=== PATIENT | female | born 1985 | race Two or more races ===

== ENCOUNTER 2024-11-25 10:58 | Emergency (ER) | payer MEDICAID, SELFPAY ==
[2024-11-25 11:36] VITALS: BP 118/87; PULSE 97; RESP 18; TEMP 37.3; O2SAT 100; BMI 27.9
--- NOTE | 2024-11-25 12:01 | XR_ITS ---
Examination: Abdomen sonogram, Limited Date and time of exam: November 25, 2024 1219 hrs. Indications: Right upper abdominal pain beginning one week ago Technique: Real-time mendez scale transabdominal sonographic images of the upper abdomen obtained. Findings: Multiple gallstones Gallbladder wall 0.2 cm Common bile duct 0.3 cm Pancreatic head 2.3 cm Liver 14 cm fatty liver no focal liver lesions Normal hepatopedal portal venous flow Patent IVC Impression: Cholelithiasis, negative for cholecystitis
--- NOTE | 2024-11-25 12:01 | XR_ITS ---
Examination: CT brain head without contrast. 2-D sagittal coronal reconstructions Date and time of exam:November 25, 2024 1205 hrs. Indications: Head pain beginning 2 days ago CTDI: vol (mGy):44.5 DLP: (mGycm):892 Technique: Multiple CT axial sections of the brain have been obtained, 5 mm slice thickness. Contrast has not been administered. 2-D sagittal, coronal reconstructions have been obtained Low dose protocols were performed. One or more of the following dose reduction techniques were used; automated exposure control, adjustment of the mA and/or KV according to patient size, use of iterative reconstruction technique. Findings: No significant ventricular enlargement. Intra-axial or extra-axial hemorrhage density is not seen. No mass effect or midline shift Basal cisterns are not remarkable. Fourth ventricle is midline. Cranial vault intact. Impression: Negative for acute hemorrhage, mass effect or midline shift
--- NOTE | 2024-11-25 12:02 | PD.EDRME ---
Rapid Medical Screening Exam RME Arrival date/time: 11/25/24 10:58 39-year-old female presents the emergency department complains of right flank pain and headache Chief Complaint: General Adult/Misc Complain Time Seen by Provider: 11/25/24 11:01 Vital signs: Vital Signs Temperature 99.1 F 11/25/24 11:36 Pulse Rate 97 11/25/24 11:36 Respiratory Rate 18 11/25/24 11:36 Blood Pressure 118/87 H 11/25/24 11:36 Pulse Oximetry (%) 100 11/25/24 11:36 Oxygen Delivery Method Room Air 11/25/24 11:36
[2024-11-25 12:28] LABS: Collection Type, Urine Clean Catch
[2024-11-25 12:33] LABS: Bacteria,Urine 3+; Bilirubin,Urine Negative (Negative); Blood,Urine Negative (Negative); Clarity,Urine Clear (Clear/Hazy); Color,Urine Lt-Yellow (Lt Yel-Yel); Glucose, Urine Negative (Negative); Ketones,Urine Negative (Negative); Leukocyte Esterase,Urine Negative (Negative); Nitrite,Urine Negative (Negative); Protein,Urine Negative (Neg - Trace); RBC,Urine 3 /hpf (0-3); Specific Gravity,Urine 1.013 (1.001-1.035); Squamous Epithelial Cell,Urine 3 /hpf (0-5); Urobilinogen,Urine Negative mg/dL (0.0-1.0); WBC,Urine 1 /hpf (0-5)
[2024-11-25 12:41] LABS: HCG Qualitative,Urine Negative
[2024-11-25 12:44] LABS: Culture Indicated,Urine Yes
--- NOTE | 2024-11-25 12:45 | EDNOTE_ITS ---
<Statement entered by Lee Ann Armenta MD - 11/25/24 16:22> As co-signing physician, I was present and available for consult prn. I concur with the plan and care as documented by the midlevel provider. ED General RME/HPI General Chief complaint: General Adult/Misc Complain Stated complaint: BODY PAIN WITH NAUSEA, FLU LIKE SYMPTOMS Time Seen by Provider: 11/25/24 11:01 Arrival date/time: 11/25/24 10:58 CC: Left-sided head and neck pain with pain extending down the right side of her body burning sensation, mild nausea without vomiting mild constipation onset 3 days ago been taking Motrin last dose taken was yesterday evening. Patient states some relief from the Motrin. Upon initial assessment the patient declined again dressing, patient declined Motrin be being offered. Patient is awake alert oriented borderline tachycardic but not in any acute distress. RME / HPI RME / HPI narrative: 11/25/24 10:58 39-year-old female presents the emergency department complains of right flank pain and headache Related Data Previous Rx's ?Medication ?Instructions ?Recorded hydrocodone 5 mg-acetaminophen 325 1 tab PO Q6H PRN pain #14 tabs 12/12/19 mg tablet ([place]) metoclopramide HCl 10 mg tablet 10 mg PO Q6H PRN nausea and 12/12/19 (Reglan) vomiting #30 tabs meloxicam 7.5 mg tablet 7.5 mg PO QDAY #10 tabs 11/25/24 Allergies Allergy/AdvReac Type Severity Reaction Status Date / Time No Known Allergies Allergy Verified 12/12/19 03:31 Review of Systems Review of Systems Narrative Review of Systems: GEN: No fever, no chills, no weight loss EYES: No discharge, no visual changes, no pain HEENT: No ear pain, no congestion, no sore throat PULM: No shortness of breath, no cough, no congestion CV: No chest pain, no dyspnea on exertion, no palpitations GI: No nausea, no vomiting, no diarrhea, no pain, no constipation : No frequency, no urgency, no dysuria MUSC/SKEL: No joint pain, no back pain SKIN: No rash PSYCH: No hallucinations, no depression HEME/LYMPH: No easy bleeding or bruising tendencies NEURO: No weakness, no headache Past Medical History Past Medical History NEUROLOGIC: Negative Neurological Disorders or Seizures CARDIAC: Negative Cardiac Disorders or Congestive Heart Failure RESPIRATORY: Positive Tuberculosis (6 month of tx in 2012); Negative Chronic Obstructive Pulmonary Disease (COPD) GASTROINTESTINAL: Positive Gastrointestinal Disorders and Gall Bladder Disease GENITOURINARY: Negative Genitourinary Disorders or Renal Disease REPRODUCTIVE: Negative Pelvic Inflammatory Disease MUSCULOSKELETAL: Positive Musculoskeletal Disorders; Negative Carpal Tunnel Syndrome ENT: Negative Cataracts ENDOCRINE: Negative Endocrine Disorders, Diabetes Mellitus Type 1 or Diabetes Mellitus Type 2 HEMATOLOGIC: Negative Blood Disorders OTHER HISTORY: Negative Autoimmune Disease, Blood Transfusions, Blood Transfusion Reaction, Anesthesia Reactions or Organ Transplant Family History FAMILY HISTORY: Negative Family Psychiatric Problems, Family Respiratory Disorders, Family Cardiac Disorders, Family Gastrointestinal Problems, Family Cancer, Family Surgery or Family Anesthesia Reaction Surgical History SURGICAL: Positive Section (1); Negative Cardiac Surgery, Open Heart Surgery, Coronary Artery Bypass Graft, Valve Replacement, Vascular Surgery, Coronary Stent, Cardiac Catheterization, Pacemaker, Angiogram, Auto Implanted Cardiovert Defib, Carotid Endarterectomy, Endocrine Surgery, Thyroidectomy, Ear Surgery, Tympanostomy Tube, Eye Surgery, Nose Surgery, Oral Surgery, Tonsillectomy, Adenoidectomy, Cochlear Implant, Corneal Transplant, Throat Surgery, Abdominal Surgery, Tracheostomy, Gastric Bypass Surgery, Gastrostomy, Bowel Surgery, Nephrectomy, Transurethral Resection, Joint Replacement, Amputation, Open Reduction Internal Fixation, Arthroscopy, Neurologic Surgery, Brain Shunt, Mastectomy, Lumpectomy, Hysterectomy, Tubal Ligation, Vasectomy or Organ Transplant Social History SMOKING STATUS: Never smoker ED Exam Narrative Physical exam: [General: Appears not in any acute distress physical exam limited today due to refusal to get undressed. Head normocephalic HEENT: Eyes pupils are PERRLA EOMs intact. Face is covered unable to assess all other HEENT subsystems. Neck is supple with observed range of motion. Chest equal chest rise nontender to palpation Respiratory: Clear to auscultation no wheezes crackles or rubs CV: Rate rhythm is regular, borderline tachycardic, no murmurs rubs or clicks Abdomen is limited due to patient being fully dressed no pain with palpation Back: No CVA tenderness no spinous process tenderness from cervical spine thoracic and lumbar spine Skin: Upper portion of the face is the only part of the body visible other than hands no crepitus induration ulceration or lesions. Extremities: Moving all extremity against resistance cap refill less than 2 seconds neurosensory intact Neuro: Awake alert oriented x3 Glascow coma 15 no focal deficits] Course Quality Measures VTE prophylaxis Orders Category Date Time Status Bedside Influenza A&B Antigen Test NOW Care 11/25/24 11:01 Completed Bedside Influenza A&B Antigen Test NOW Care 11/25/24 12:[address] head/brain wo con Stat Exams 11/25/24 12:01 Completed US gall bladder Stat Exams 11/25/24 12:01 Completed CBC Stat Lab 11/25/24 12:58 Completed Comprehensive Metabolic Panel Stat Lab 11/25/24 12:58 Completed HCG Qualitative,Urine Stat Lab 11/25/24 12:19 Completed Lipase Stat Lab 11/25/24 12:58 Completed UA, C/S IF [Urinalysis, C/S if Indicated] Stat Lab 11/25/24 12:19 Completed Urine Culture Stat Lab 11/25/24 12:19 Received Acetaminophen Tab [Tylenol ES Tab] Med 11/25/24 12:01 Discontinued 1,000 mg PO X1 ONE Ondansetron Odt [Zofran Odt] Med 11/25/24 12:01 Discontinued 4 mg PO X1 ONE Vital Signs Vital signs: Vital Signs Temperature 99.1 F 11/25/24 11:36 Pulse Rate 97 11/25/24 11:36 Respiratory Rate 18 11/25/24 11:36 Blood Pressure 118/87 H 11/25/24 11:36 Pulse Oximetry (%) 100 11/25/24 11:36 Oxygen Delivery Method Room Air 11/25/24 11:36 [facility] Patient data External records reviewed:: [facility] previous records Clinical information provided by:: patient Social determinants that could affect healthcare access:: none Patient has the following chronic illnesses:: None How is presenting disease/condition affected by chronic disease/condition?: u neffected by Evaluation data The following diagnostics were reviewed and interpreted by me:: lab results and radiology exam(s) Lab and/or radiology exams considered but not ordered:: CBC shows no acute leukocytosis anemia thrombocytopenia CMP shows no acute electrolyte imbalances renal impairment transaminitis or T. bili elevation Gallbladder ultrasound shows cholelithiasis without cholecystitis. Urine is negative for UTI Interpretation Summary: There is no acute finding requires emergent or immediate intervention I suspect the patient has muscular pain. The patient was informed that they had cholelithiasis. Medications Medications considered but not ordered:: None Medication administrations:: Medication Administration History Discontinued Medications Acetaminophen (Acetaminophen 500 Mg Tablet) 1,000 mg PO X1 ONE Stop: 11/25/24 12:02 Last Admin: 11/25/24 13:57 Dose: 1,000 mg Documented By: ABIGAIL Ondansetron HCl (Ondansetron Odt 4 Mg Tabrap) 4 mg PO X1 ONE; Protocol Stop: 11/25/24 12:02 Last Admin: 11/25/24 13:57 Dose: Not Given Documented By: ABIGAIL Non-Admin Reason: Patient Refused None Consultations Consultation(s) initiated? (list below): No Consultation #1 (Physician, Specialty, Details): None Diagnosis Differential Diagnosis ED Complaint MDM: Cholelithiasis cholecystitis electrolyte imbalances renal impairment Most likely diagnosis given after review of the tests above:: Body aches, cholelithiasis Admission Indicated Admission indicated?: not indicated Explain why admission is indicated or not indicated:: Stable for outpatient follow-up Admission Request Was there a request for admission?: No Disposition Plan Disposition Plan: Discharge Discharge Attestation Discharge Attestation: The patient and all family members were given an opportunity to ask questions and understood the discharge instructions. Discharge instructions specifically effects, indications for sooner follow up or return to the emergency department, and the expected course of current diagnosis. Patient condition: Stable Medical Decision Making Differential Diagnosis Differential Diagnosis: Cholelithiasis cholecystitis electrolyte imbalances renal impairment Lab Data 11/25/24 12:58 11/25/24 12:58 Labs: Lab Results 11/25/24 11/25/24 Range/Units 12:19 12:58 WBC 3.2 L (3.6-11.0) Thou/mm3 RBC 4.69 (4.00-5.20) Miln/mm3 Hgb 13.9 (12.0-16.0) g/dL Hct 40.0 (36.0-46.0) % MCV 85 (80-100) fL MCH 29.6 (25.0-35.0) pg MCHC 34.8 (31.0-37.0) g/dl RDW Std Deviation 39.0 (36.4-46.3) fL Plt Count 225 (140-440) Thou/mm3 Neut % (Auto) 48 (37-80) % Lymph % (Auto) 34 (10-50) % [place] % (Auto) 16 H (0-12) % Eos % (Auto) 1 (0-10) % Baso % (Auto) 0 (0-2.5) % Neut # (Auto) 1.6 L (1.8-7.7) Thou/mm3 Lymph # (Auto) 1.1 (1.0-4.8) Thou/mm3 [place] # (Auto) 0.5 (0.0-0.8) Thou/mm3 Eos # (Auto) 0.0 (0.0-0.5) Thou/mm3 Baso # (Auto) 0.0 (0.0-0.2) Thou/mm3 Immature Gran # (Auto) 0.01 H (0.00-0.00) Thou/mm3 Absolute Nucleated RBC 0.00 (0.00-0.00) Thou/mm3 Immature Gran % 0 (0-0) % Nucleated RBC % 0 (0) /100 WBC Sodium 137 (136-145) mMol/L Potassium 3.7 (3.4-5.1) mMol/L Chloride 104 (98-107) mMol/L Carbon Dioxide 25.6 (20.0-31.0) mMol/L Anion Gap 7 (7-16) BUN 9 (9-23) mg/dL Creatinine 0.7 (0.6-1.3) mg/dL Estim Creat Clear Calc 114.1 (>60) mL/min eGFR > 60 (60 - ) See Note BUN/Creatinine Ratio 13 (12-20) Ratio Glucose 91 (74-106) mg/dL Calculated Osmolality 272 L (275-295) Calcium 9.5 (8.3-10.6) mg/dL Corrected Calcium 9.5 (8.5-10.1) mg/dL Total Bilirubin 0.3 (0.3-1.2) mg/dL AST 18 (0-34) U/L ALT 14 (10-49) U/L Alkaline Phosphatase 80 (46-116) U/L Total Protein 8.4 H (5.7-8.2) gm/dL Albumin 4.8 (3.5-5.0) gm/dL Globulin 3.6 H (2.3-3.5) gm/dL Albumin/Globulin Ratio 1.3 (1.2-2.2) Lipase 31 (12-53) U/L Ur Collection Type Clean Catch Urine Color Lt-Yellow (Lt Yel-Yel) Urine Clarity Clear (Clear/Hazy) Urine pH 6.0 (5.0-7.0) Ur Specific [place] 1.013 (1.001-1.035) Urine Protein Negative (Neg - Trace) Urine Glucose (UA) Negative (Negative) Urine Ketones Negative (Negative) Urine Blood Negative (Negative) Urine Nitrite Negative (Negative) Urine Bilirubin Negative (Negative) Urine Urobilinogen (Auto) Negative (0.0-1.0) mg/dL Ur Leukocyte Esterase Negative (Negative) Urine RBC 3 (0-3) /hpf Urine WBC 1 (0-5) /hpf Ur Squamous Epith Cells 3 (0-5) /hpf Urine Bacteria 3+ A (None) Ur Culture Indicated? Yes Urine HCG, Qual Negative Discharge Plan Plan Patient Disposition: HOME (Self Care) Patient condition on transfer: Stable Prescriptions/Referrals Prescriptions/Med Rec: New meloxicam 7.5 mg tablet 7.5 mg PO QDAY Qty: 10 0RF No Action hydrocodone-acetaminophen [[place]] 5-325 mg tablet 1 tab PO Q6H MDD 1 tab every 6 hrs PRN (Reason: pain) Qty: 14 0RF metoclopramide HCl [Reglan] 10 mg tablet 10 mg PO Q6H PRN (Reason: nausea and vomiting) Qty: 30 0RF Referrals: Dennis Haro MD [Primary Care Provider] - In 1 week Problem List Clinical Impression: Headache, Cholelithiasis, Pain of right side of body Patient/Caregiver Discharge Instructions Education Materials: Treating Gallstones Print Language: Kiswahili Stand Alone Forms: Katerine Award Info., Patient Portal Info Letter, Work/School Release PA/GREASER HELPER Supervising Physician PA/GREASER HELPER Supervising Physician: Jerry Potts ENP
[2024-11-25 13:08] LABS: Basophils % (Auto) 0 % (0-2.5); Eosinophils % (Auto) 1 % (0-10); Hemoglobin 13.9 g/dL (12.0-16.0); Immature Granulocytes % (Auto) 0 % (0-0); Immature Granulocytes Auto 0.01 Thou/mm3 (0.00-0.00); Lymphocytes # (Auto) 1.1 Thou/mm3 (1.0-4.8); Lymphocytes % (Auto) 34 % (10-50); Mean Corpuscular HGB Conc 34.8 g/dl (31.0-37.0); Mean Corpuscular Hemoglobin 29.6 pg (25.0-35.0); Mean Corpuscular Volume 85 fL (80-100); Monocytes # (Auto) 0.5 Thou/mm3 (0.0-0.8); Monocytes % (Auto) 16 % (0-12); Neutrophils # (Auto) 1.6 Thou/mm3 (1.8-7.7); Neutrophils % (Auto) 48 % (37-80); Nucleated Red Blood Cell % 0 /100 WBC (0); Platelet Count 225 Thou/mm3 (140-440); Red Blood Count 4.69 Miln/mm3 (4.00-5.20); White Blood Count 3.2 Thou/mm3 (3.6-11.0)
[2024-11-25 13:25] LABS: Alanine Aminotransferase 14 U/L (10-49); Albumin, Serum 4.8 gm/dL (3.5-5.0); Albumin/Globulin Ratio 1.3 (1.2-2.2); Alkaline Phosphatase 80 U/L (46-116); Anion Gap 7 (7-16); Aspartate Amino Transferase 18 U/L (0-34); BUN/Creatinine Ratio 13 Ratio (12-20); Bilirubin,Total 0.3 mg/dL (0.3-1.2); Blood Urea Nitrogen 9 mg/dL (9-23); Calcium 9.5 mg/dL (8.3-10.6); Calcium (Corrected) 9.5 mg/dL (8.5-10.1); Carbon Dioxide 25.6 mMol/L (20.0-31.0); Chloride 104 mMol/L (98-107); Creatinine (Component) 0.7 mg/dL (0.6-1.3); Estimated Creatinine Clearance 114.1 mL/min (>60); Globulin 3.6 gm/dL (2.3-3.5); Glucose 91 mg/dL (74-106); Lipase 31 U/L (12-53); Osmolality,Calculated 272 (275-295); Potassium 3.7 mMol/L (3.4-5.1); Sodium 137 mMol/L (136-145); Total Protein 8.4 gm/dL (5.7-8.2); eGFR > 60 See Note
[2024-11-25] MEDS: ACETAMINOPHEN 500 MG TABLET 1000 MG PO (13:57)
== END 2024-11-25 14:22 | disposition home or self-care (01) ==
PROVIDERS: Nurse Practitioner Primary Care; Emergency Provider Emergency Medicine; PCP Family Medicine
DX: K80.20 Calculus of gallbladder without cholecystitis without obstruction (principal); R51.9 Headache, unspecified; M54.2 Cervicalgia; R20.8 Other disturbances of skin sensation
CPT/HCPCS: 36415; 70450; 76705; 80053; 81001; 81025; 83690; 85025; 87086; 87400; 99284; A9270

== ENCOUNTER 2025-06-01 19:08 | Emergency (ER) | payer MEDICAID, SELFPAY ==
[2025-06-01 19:08] VITALS: BMI 27.4
[2025-06-01 20:10] VITALS: BP 119/85; PULSE 107; RESP 18; TEMP 37.1; O2SAT 99
--- NOTE | 2025-06-01 20:25 | EDNOTE_ITS ---
ED Abdominal Pain RME/HPI General Chief Complaint: Abdominal Pain Stated complaint: ABD PAIN X 3 WKS; NAUSEA Time seen by provider: 06/01/25 20:23 Arrival date/time: 06/01/25 19:08 40F with no significant PMH presents to ED with several weeks of burning epigastric pain and N/V. Patient tested positive for H. pylori and finished 5/10 days of ABX w/o relief. Separately, patient also has some dysuria. Limitations: no limitations Related Data Previous Rx's ?Medication ?Instructions ?Recorded hydrocodone 5 mg-acetaminophen 325 1 tab PO Q6H PRN pa in #14 tabs 12/12/19 mg tablet ([place]) metoclopramide HCl 10 mg tablet 10 mg PO Q6H PRN nause a and 12/12/19 (Reglan) vomiting #30 tabs meloxicam 7.5 mg tablet 7.5 mg PO QDAY #10 tabs /04/24 cefuroxime axetil 500 mg tablet 500 mg PO BID 7 days # 14 tabs 06/01/25 Allergies Allergy/AdvReac Type Severity Reaction Status Date / Time No Known Allergies Allergy Verified 06/01/25 19:10 Review of Systems Review of Systems Systems Reviewed: All systems reviewed, normal except as documented Constitutional Constitutional: Reports system reviewed and no additional complaints, except as documented, Denies fever(s) and Denies headache(s) ENT Ears, Nose, Mouth, and Throat: Denies disequilibrium and Denies headache(s) Cardiovascular Cardiovascular: Reports system reviewed and no additional complaints, except as documented, Denies chest pain and Denies dyspnea Respiratory Respiratory: Reports system reviewed and no additional complaints, except as documented, Denies cough and Denies dyspnea Gastrointestinal Gastrointestinal: Reports system reviewed and no additional complaints, except as documented, Reports as per HPI, Reports abdominal pain, Reports nausea and Reports vomiting Genitourinary Genitourinary: Reports as per HPI and Reports dysuria Neurologic Neurologic: Reports system reviewed and no additional complaints, except as documented, Denies confusion, Denies disequilibrium and Denies headache(s) Psychiatric Psychiatric: Denies confusion Past Medical History Past Medical History NEUROLOGIC: Negative Neurological Disorders or Seizures CARDIAC: Negative Cardiac Disorders or Congestive Heart Failure RESPIRATORY: Positive Tuberculosis (6 month of tx in 2011); Negative Chronic Obstructive Pulmonary Disease (COPD) GASTROINTESTINAL: Positive Gastrointestinal Disorders and Gall Bladder Disease GENITOURINARY: Negative Genitourinary Disorders or Renal Disease REPRODUCTIVE: Negative Pelvic Inflammatory Disease MUSCULOSKELETAL: Positive Musculoskeletal Disorders; Negative Carpal Tunnel Syndrome ENT: Negative Cataracts ENDOCRINE: Negative Endocrine Disorders, Diabetes Mellitus Type 1 or Diabetes Mellitus Type 2 HEMATOLOGIC: Negative Blood Disorders OTHER HISTORY: Negative Autoimmune Disease, Blood Transfusions, Blood Transfusion Reaction, Anesthesia Reactions or Organ Transplant Family History FAMILY HISTORY: Negative Family Psychiatric Problems, Family Respiratory Disorders, Family Cardiac Disorders, Family Gastrointestinal Problems, Family Cancer, Family Surgery or Family Anesthesia Reaction Surgical History SURGICAL: Positive Section (1); Negative Cardiac Surgery, Open Heart Surgery, Coronary Artery Bypass Graft, Valve Replacement, Vascular Surgery, Coronary Stent, Cardiac Catheterization, Pacemaker, Angiogram, Auto Implanted Cardiovert Defib, Carotid Endarterectomy, Endocrine Surgery, Thyroidectomy, Ear Surgery, Tympanostomy Tube, Eye Surgery, Nose Surgery, Oral Surgery, Tonsillectomy, Adenoidectomy, Cochlear Implant, Corneal Transplant, Throat Surgery, Abdominal Surgery, Tracheostomy, Gastric By pass Surgery, Gastrostomy, Bowel Surgery, Nephrectomy, Transurethral Resection, Joint Replacement, Amputation, Open Reduction Internal Fixation, Arthroscopy, Neurologic Surgery, Brain Shunt, Mastectomy, Lumpectomy, Hysterectomy, Tubal Ligation, Vasectomy or Organ Transplant Social History SMOKING STATUS: Never smoker ED Exam General Limitations: Present no limitations General appearance: Present alert and in no apparent distress Head Head exam: Present atraumatic Eye Eye exam: Present normal appearance, PERRL and EOMI ENT ENT exam: Present normal exam, normal oropharynx and mucous membranes moist Neck Neck exam: Present normal inspection, full ROM and trachea midline Chest Chest inspection: Present normal inspection and symmetric chest wall rise Respiratory Respiratory exam: Present normal lung sounds bilaterally Cardiovascular Cardiovascular exam: Present regular rate, normal rhythm and normal heart sounds Abdominal Exam Abdominal exam: Present soft and normal bowel sounds Extremities Exam Extremities exam: Present normal inspection and full ROM Back Exam Back exam: Present normal inspection and full ROM Neurological Exam Neurological exam: Present alert, oriented X3 and CN II-XII intact Psychiatric Psychiatric exam: Present normal affect and normal mood Skin Skin exam: Present warm, dry, intact and normal color Course Quality Measures none Orders Category Date Time Status HCG Qualitative,Urine Stat Lab 06/01/25 20:33 Completed Urinalysis, C/S if Indicated Stat Lab 06/01/25 20:33 Completed Urine Culture Stat Lab 06/01/25 20:33 Received Famotidine [Pepcid] Med 06/01/25 20:24 Discontinued 40 mg PO X1 ONE Lidocaine 2% Viscous [Xylocaine 2% Viscous] Med 06/01/25 20:24 Discontinued 15 ml PO X1 ONE Ondansetron Odt [Zofran Odt] Med 06/01/25 20:25 Discontinued 4 mg PO X1 ONE mg Hyd/Al Hyd/Dilan Susp [Maalox Susp] Med 06/01/25 20:24 Discontinued 30 ml PO X1 ONE Vital Signs Vital signs: Vital Signs Temperature 98.8 F 06/01/25 20:10 Pulse Rate 107 H 06/01/25 20:10 Respiratory Rate 18 06/01/25 20:10 Blood Pressure 119/85 H 06/01/25 20:10 Pulse Oximetry (%) 99 06/01/25 20:10 Oxygen Delivery Method Room Air 06/01/25 20:10 O2 at 99% on RA and WNLs Abdominal Pain MDM MDM Narrative MDM Narrative:: 40F with no significant PMH presents to ED with several weeks of burning epigastric pain and N/V. Patient tested positive for H. pylori and finished 5/10 days of ABX w/o relief. Separately, patient also has some dysuria. Physical exam reveals no ab tenderness. Patient is afebrile, calm, and alert. Patient refused GI cocktail. UA suggests mild UTI. Patient left prior to DC with paperwork. Patient data External records reviewed:: [facility] previous records Clinical information provided by:: patient Social determinants that could affect healthcare access:: none Patient has the following chronic illnesses:: none How is presenting disease/condition affected by chronic disease/condition?: no chronic disease Evaluation data The following diagnostics were reviewed and interpreted by me:: lab results Lab and/or radiology exams considered but not ordered:: ordered Interpretation Summary: above Medications / Prescriptions Medications or Prescriptions considered but not ordered:: ordered Medication administrations:: Medication Administration History Discontinued Medications Al Hydrox/Mg Hydrox/Simethicone (Mg Hyd/Al Hyd/Dilan (Maalox Reg) Susp 30 Ml Udc) 30 ml PO X1 ONE Stop: 06/01/25 20:25 Last Admin: 06/01/25 20:33 Dose: Not Given Documented By: BROWN Non-Admin Reason: Patient Refused Famotidine (Famotidine 20 Mg Tablet) 40 mg PO X1 ONE Stop: 06/01/25 20:25 Last Admin: 06/01/25 20:33 Dose: Not Given Documented By: Non-Admin Reason: Patient Refused Lidocaine HCl (Lidocaine Viscous 2% 15 Ml Udc) 15 ml PO X1 ONE Stop: 06/01/25 20:25 Last Admin: 06/01/25 20:33 Dose: Not Given Documented By: Non-Admin Reason: Patient Refused Ondansetron HCl (Ondansetron Odt 4 Mg Tabrap) 4 mg PO X1 ONE; Protocol Stop: 06/01/25 20:26 Last Admin: 06/01/25 20:33 Dose: Not Given Documented By: Non-Admin Reason: Patient Refused above Consultations Consultation(s) initiated? (list below): No Diagnosis Differential diagnosis abdominal pain: abdominal pain, acute appendicitis, calculus of kidney, constipation, diverticulitis, endometriosis, gastroenteritis, pancreatitis, small bowel obstruction and other (gastritis, UTI) Most likely diagnosis given after review of the tests above:: UTI and ab pain Admission Indicated Admission indicated?: not indicated Admission Request Was there a request for admission?: No Disposition Plan Disposition Plan: other (specify) (DC w/o paperwork) Discharge Plan Plan Patient Disposition: HOME (Self Care) Discharge Disposition comment: Stable Prescriptions/Referrals Prescriptions/Med Rec: New cefuroxime axetil 500 mg tablet 500 mg PO BID 7 Days Qty: 14 0RF No Action hydrocodone-acetaminophen [[place]] 5-325 mg tablet 1 tab PO Q6H MDD 1 tab every 6 hrs PRN (Reason: pain) Qty: 14 0RF metoclopramide HCl [Reglan] 10 mg tablet 10 mg PO Q6H PRN (Reason: nausea and vomiting) Qty: 30 0RF meloxicam 7.5 mg tablet 7.5 mg PO QDAY Qty: 10 0RF Problem List Clinical Impression: UTI (lower urinary tract infection), Abdominal pain Patient/Caregiver Discharge Instructions Education Materials: ED CYSTITIS Female Adult Additional Instructions: Please follow-up with PCP within 24-48 hours and return immediately if symptoms worsen. Follow-up with PCP about H.pylori treatment. Print Language: [place]araguan Stand Alone Forms: Patient Portal Info Letter HIPOLITO/DAAN Supervising Physician HIPOLITO/DANA Supervising Physician: Dr. Lua
[2025-06-01 21:00] LABS: Collection Type, Urine Clean Catch
[2025-06-01 21:17] LABS: Bacteria,Urine 1+; Bilirubin,Urine Negative (Negative); Blood,Urine Negative (Negative); Clarity,Urine Clear (Clear/Hazy); Color,Urine Lt-Yellow (Lt Yel-Yel); Glucose, Urine Negative (Negative); Ketones,Urine 1+ (Negative); Leukocyte Esterase,Urine Negative (Negative); Nitrite,Urine Negative (Negative); PH,Urine 6.0 (5.0-7.0); Protein,Urine Negative (Neg - Trace); RBC,Urine 1 /hpf (0-3); Specific Gravity,Urine 1.008 (1.001-1.035); Squamous Epithelial Cell,Urine 2 /hpf (0-5); Urobilinogen,Urine Negative mg/dL (0.0-1.0); WBC,Urine 1 /hpf (0-5)
[2025-06-01 21:22] LABS: Culture Indicated,Urine Yes; HCG Qualitative,Urine Negative
== END 2025-06-01 21:50 | disposition home or self-care (01) ==
LOC: SERX 22:06
PROVIDERS: Physician Assistant; Emergency Provider Emergency Medicine
DX: N39.0 Urinary tract infection, site not specified (principal)
CPT/HCPCS: 81001; 81025; 87086; 99283

== ENCOUNTER 2025-09-30 18:51 | Emergency (ER) | payer MEDICAID, SELFPAY ==
[2025-09-30 19:21] VITALS: BP 124/74; PULSE 102; RESP 19; TEMP 36.9; O2SAT 100
[2025-09-30 19:22] VITALS: BMI 23.3
--- NOTE | 2025-09-30 19:25 | XR_ITS ---
Examination: Abdomen sonogram, Limited Date and time of exam: September 30, 2025, 1945 hours INDICATIONS: Right upper abdominal pain, history cholelithiasis Technique: Real-time mendez scale transabdominal sonographic images of the upper abdomen obtained. Findings: Multiple gallstones Gallbladder wall 0.3 cm no edema Common bile duct normal 0.4 cm Pancreatic head 1.7 cm Liver 13.3 cm no liver lesions Normal hepatopetal portal venous flow Patent IVC IMPRESSION: Cholelithiasis, negative for cholecystitis
--- NOTE | 2025-09-30 19:26 | PD.EDRME ---
Rapid Medical Screening Exam RME Arrival date/time: 09/30/25 18:51 40F with no significant PMH presents to ED with RUQ pain that radiates to back. Chief Complaint: Abdominal Pain Vital signs: Vital Signs Temperature 98.5 F 09/30/25 19:21 Pulse Rate 102 H 09/30/25 19:21 Respiratory Rate 19 09/30/25 19:21 Blood Pressure 124/74 09/30/25 19:21 Pulse Oximetry (%) 100 09/30/25 19:21 Oxygen Delivery Method Room Air 09/30/25 19:21 Exam: RUQ tenderness Clinical Impression: biliary disease vs pancreatitis vs kidney stone vs gastritis vs UTI/pyelo
[2025-09-30 20:38] LABS: Basophils # (Auto) 0.0 Thou/mm3 (0.0-0.2); Basophils % (Auto) 0 % (0-2.5); Eosinophils # (Auto) 0.1 Thou/mm3 (0.0-0.5); Eosinophils % (Auto) 1 % (0-10); Hematocrit 38.6 % (36.0-46.0); Hemoglobin 13.6 g/dL (12.0-16.0); Immature Granulocytes Auto 0.02 Thou/mm3 (0.00-0.00); Lymphocytes # (Auto) 2.8 Thou/mm3 (1.0-4.8); Lymphocytes % (Auto) 37 % (10-50); Mean Corpuscular HGB Conc 35.2 g/dl (31.0-37.0); Mean Corpuscular Hemoglobin 31.2 pg (25.0-35.0); Mean Corpuscular Volume 89 fL (80-100); Monocytes # (Auto) 0.8 Thou/mm3 (0.0-0.8); Monocytes % (Auto) 10 % (0-12); Neutrophils # (Auto) 4.0 Thou/mm3 (1.8-7.7); Neutrophils % (Auto) 52 % (37-80); Nucleated Red Blood Cell # 0.00 Thou/mm3 (0.00-0.00); Nucleated Red Blood Cell % 0 /100 WBC (0); Platelet Count 247 Thou/mm3 (140-440); RDW Standard Deviation 38.2 fL (36.4-46.3); Red Blood Count 4.36 Miln/mm3 (4.00-5.20); White Blood Count 7.8 Thou/mm3 (3.6-11.0)
[2025-09-30 21:01] LABS: Alanine Aminotransferase 20 U/L (10-49); Albumin, Serum 4.9 gm/dL (3.5-5.0); Albumin/Globulin Ratio 1.5 (1.2-2.2); Alkaline Phosphatase 72 U/L (46-116); Anion Gap 9 (7-16); Aspartate Amino Transferase 25 U/L (0-34); BUN/Creatinine Ratio 8 Ratio (12-20); Bilirubin,Total 0.7 mg/dL (0.3-1.2); Blood Urea Nitrogen 5 mg/dL (9-23); Calcium 10.1 mg/dL (8.3-10.6); Calcium (Corrected) 10.1 mg/dL (8.5-10.1); Carbon Dioxide 23.6 mMol/L (20.0-31.0); Chloride 105 mMol/L (98-107); Creatinine (Component) 0.6 mg/dL (0.6-1.3); Estimated Creatinine Clearance 116.7 mL/min (>60); Globulin 3.2 gm/dL (2.3-3.5); Glucose 87 mg/dL (74-106); Lipase 29 U/L (12-53); Osmolality,Calculated 271 (275-295); Potassium 3.2 mMol/L (3.4-5.1); Sodium 138 mMol/L (136-145); Total Protein 8.1 gm/dL (5.7-8.2); eGFR > 60 See Note
[2025-09-30 21:14] LABS: Collection Type, Urine Clean Catch
[2025-09-30 21:26] LABS: HCG Qualitative,Urine Negative
--- NOTE | 2025-09-30 21:38 | EDNOTE_ITS ---
ED Abdominal Pain RME/HPI General Chief Complaint: Abdominal Pain Stated complaint: RIGHT ABD AND BACK PAIN Arrival date/time: 09/30/25 18:51 RME / HPI RME / HPI narrative: 09/30/25 18:51 40F with no significant PMH presents to ED with RUQ pain that radiates to back. Dr. Wood?s Main ED Evaluation: 40yo female with no significant past medical history presents to the ED for a chief complaint of epigastric pain that radiates to her back. Patient states she had this pain for a long time , but reports she's been on a diet and her symptoms were improving. Her pain started worsening last night and was persistent, so she came in for evaluation. Patient's pain does not worsen after she eats. Denies any N/V/D, fever, chills, or any other associated symptoms. NKA. Related Data Previous Rx's ?Medication ?Instructions ?Recorded hydrocodone 5 mg-acetaminophen 325 1 tab PO Q6H PRN pa in #14 tabs 12/12/19 mg tablet ([place]) metoclopramide HCl 10 mg tablet 10 mg PO Q6H PRN nause a and 12/12/19 (Reglan) vomiting #30 tabs meloxicam 7.5 mg tablet 7.5 mg PO QDAY #10 tabs /04/24 dicyclomine 20 mg tablet 20 mg PO QID PRN abdominal p ain 09/30/25 #30 tabs Allergies Allergy/AdvReac Type Severity Reaction Status Date / Time No Known Allergies Allergy Verified 09/30/25 18:53 Review of Systems Review of Systems Systems Reviewed: All systems reviewed, normal except as documented Past Medical History Past Medical History NEUROLOGIC: Negative Neurological Disorders or Seizures CARDIAC: Negative Cardiac Disorders or Congestive Heart Failure RESPIRATORY: Positive Tuberculosis (6 month of tx in 2011); Negative Chronic Obstructive Pulmonary Disease (COPD) GASTROINTESTINAL: Positive Gastrointestinal Disorders and Gall Bladder Disease GENITOURINARY: Negative Genitourinary Disorders or Renal Disease REPRODUCTIVE: Negative Pelvic Inflammatory Disease MUSCULOSKELETAL: Positive Musculoskeletal Disorders; Negative Carpal Tunnel Syndrome ENT: Negative Cataracts ENDOCRINE: Negative Endocrine Disorders, Diabetes Mellitus Type 1 or Diabetes Mellitus Type 2 HEMATOLOGIC: Negative Blood Disorders OTHER HISTORY: Negative Autoimmune Disease, Blood Transfusions, Blood Transfusion Reaction, Anesthesia Reactions or Organ Transplant Family History FAMILY HISTORY: Negative Family Psychiatric Problems, Family Respiratory Disorders, Family Cardiac Disorders, Family Gastrointestinal Problems, Family Cancer, Family Surgery or Family Anesthesia Reaction Surgical History SURGICAL: Positive Section (1); Negative Cardiac Surgery, Open Heart Surgery, Coronary Artery Bypass Graft, Valve Replacement, Vascular Surgery, Coronary Stent, Cardiac Catheterization, Pacemaker, Angiogram, Auto Implanted Cardiovert Defib, Carotid Endarterectomy, Endocrine Surgery, Thyroidectomy, Ear Surgery, Tympanostomy Tube, Eye Surgery, Nose Surgery, Oral Surgery, Tonsillectomy, Adenoidectomy, Cochlear Implant, Corneal Transplant, Throat Surgery, Abdominal Surgery, Tracheostomy, Gastric Bypass Surgery, Gastrostomy, Bowel Surgery, Nephrectomy, Transurethral Resection, Joint Replacement, Amputation, Open Reduction Internal Fixation, Arthroscopy, Neurologic Surgery, Brain Shunt, Mastectomy, Lumpectomy, Hysterectomy, Tubal Ligation, Vasectomy or Organ Transplant Social History SMOKING STATUS: Never smoker ED Exam Narrative Physical exam: Generally patient is alert no obvious distress, heart regular rate and rhythm, lungs clear to auscultation equal bilaterally, abdomen soft bowel sounds present nondistended mild right upper quadrant abdominal tenderness without rebound or Kaur sign. No right-sided costovertebral angle tenderness., Neurologic exam shows a [place] Coma Scale of 15. Extremities show no edema. Course Quality Measures none Orders Category Date Time Status US gall bladder Stat Exams 09/30/25 19:25 Completed CBC Stat Lab 09/30/25 20:14 Completed CMP [Comprehensive Metabolic Panel] Stat Lab 09/30/25 20:14 Completed Drug Screen,Urine Stat Lab 09/30/25 20:56 Received HCG Qualitative,Urine Stat Lab 09/30/25 20:56 Results Lipase Stat Lab 09/30/25 20:14 Completed Urinalysis, C/S if Indicated Stat Lab 09/30/25 20:56 Results Dicyclomine Inj [Bentyl Inj] Med 09/30/25 21:46 Once 20 mg IM X1 ONE Vital Signs Vital signs: Vital Signs Temperature 98.5 F 09/30/25 19:21 Pulse Rate 102 H 09/30/25 19:21 Respiratory Rate 19 09/30/25 19:21 Blood Pressure 124/74 09/30/25 19:21 Pulse Oximetry (%) 100 09/30/25 19:21 Oxygen Delivery Method Room Air 09/30/25 19:21 Abdominal Pain MDM MDM Narrative MDM Narrative:: Scribe Attestation: 09/30/25 - Missy Hager am scribing for and in the pre sence of Dr. Wood. I interpreted all labs. There is no leukocytosis. No fever. LFTs are normal. Ultrasound of the gallbladder showed multiple stones with a normal common bile duct and without wall thickening or pericholecystic fluid. Patient will receive Bentyl 20 mg IM. Bentyl as prescribed. She was given dietary restrictions to avoid hot spicy greasy fatty foods. Follow-up with her doctor. Return to ER as needed or if condition worsens such as if fever develops. Patient data External records reviewed:: [facility] previous records (Per chart review, patient was seen here on 06/01/25 for abdominal pain.) Clinical information provided by:: patient Social determinants that could affect healthcare access:: none Patient has the following chronic illnesses:: none How is presenting disease/condition affected by chronic disease/condition?: no chronic disease Evaluation data The following diagnostics were reviewed and interpreted by me:: lab results and radiology exam(s) Lab and/or radiology exams considered but not ordered:: none Interpretation Summary: [facility] Report Signed Patient: GREGORIO CROOKS. Record#: [id number] Birthdate: 1985 Age/Sex: 40 / F Location: [facility] Attending Dr: Ordering Physician: Jason Zacarias PA-C Date of Service: 09/30/25 Procedure(s): US gall bladder Accession Number(s): [id number] cc: Dennis Haro MD; Jarod Leonard MD; Jason Zacarias PA-C~ Examination: Abdomen sonogram, Limited Date and time of exam: September 30, 2025, 1945 hours INDICATIONS: Right upper abdominal pain, history cholelithiasis Technique: Real-time mendez scale transabdominal sonographic images of the upper abdomen obtained. Findings: Multiple gallstones Gallbladder wall 0.3 cm no edema Common bile duct normal 0.4 cm Pancreatic head 1.7 cm Liver 13.3 cm no liver lesions Normal hepatopetal portal venous flow Patent IVC IMPRESSION: Cholelithiasis, negative for cholecystitis Dictated By: Jarod Leonard MD Signed By: <Electronically signed by Jarod Leonard MD in [place]> 09/30/252056 Medications / Prescriptions Medications or Prescriptions considered but not ordered:: none Medication administrations:: Medication Administration History Dicyclomine HCl (Dicyclomine Inj 10 Mg/Ml 2ml Vial) 20 mg IM X1 ONE Stop: 09/30/25 21:47 see above, if any Consultations Consultation(s) initiated? (list below): No Diagnosis Differential diagnosis abdominal pain: other (See MDM) Most likely diagnosis given after review of the tests above:: see clinical impression below Admission Indicated Admission indicated?: not indicated Admission Request Was there a request for admission?: No Disposition Plan Disposition Plan: Discharge Discharge Attestation Discharge Attestation: The patient and all family members were given an opportunity to ask questions and understood the discharge instructions. Discharge instructions specifically effects, indications for sooner follow up or return to the emergency department, and the expected course of current diagnosis. Patient condition: Stable Discharge Plan Plan Patient Disposition: HOME (Self Care) Prescriptions/Referrals Prescriptions/Med Rec: New dicyclomine 20 mg tablet 20 mg PO QID PRN (Reason: abdominal pain) Qty: 30 0RF No Action hydrocodone-acetaminophen [[place]] 5-325 mg tablet 1 tab PO Q6H MDD 1 tab every 6 hrs PRN (Reason: pain) Qty: 14 0RF metoclopramide HCl [Reglan] 10 mg tablet 10 mg PO Q6H PRN (Reason: nausea and vomiting) Qty: 30 0RF meloxicam 7.5 mg tablet 7.5 mg PO QDAY Qty: 10 0RF Referrals: Dennis Haro MD [Primary Care Provider, Family Practice] - In 1 week Problem List Clinical Impression: Cholelithiasis Patient/Caregiver Discharge Instructions Education Materials: ED Gallstones with Biliary Colic Print Language: Guamanian Stand Alone Forms: Katerine Award Info., Patient Portal Info Letter
[2025-09-30 21:51] LABS: Amorphous Crystals,Urine Present (Absent); Bacteria,Urine 1+; Bilirubin,Urine Negative (Negative); Blood,Urine Negative (Negative); Clarity,Urine Turbid (Clear/Hazy); Color,Urine Lt-Yellow (Lt Yel-Yel); Culture Indicated,Urine Yes; Glucose, Urine Negative (Negative); Ketones,Urine 2+ (Negative); Leukocyte Esterase,Urine Negative (Negative); Nitrite,Urine Negative (Negative); PH,Urine 6.0 (5.0-7.0); Protein,Urine Negative (Neg - Trace); RBC,Urine 5 /hpf (0-3); Specific Gravity,Urine 1.009 (1.001-1.035); Squamous Epithelial Cell,Urine 8 /hpf (0-5); Urobilinogen,Urine Negative mg/dL (0.0-1.0); WBC,Urine 1 /hpf (0-5)
[2025-09-30] MEDS: DICYCLOMINE INJ 10 MG/ML 2ML VIAL 20 MG IM (22:18)
[2025-09-30 22:27] LABS: Amphetamine/Methamp Scrn,U Negative (Negative); Barbiturate Screen,Urine Negative (Negative); Benzodiazepines Screen,Urine Negative (Negative); Benzoylecgonine Screen, Ur Negative (Negative); Fentanyl Screen,Urine Negative (Negative); Opiate Screen,Urine Negative (Negative); THC Screen,Urine Negative (Negative)
== END 2025-09-30 22:35 | disposition home or self-care (01) ==
PROVIDERS: Physician Assistant; Emergency Provider Emergency Medicine; PCP Family Medicine
DX: K80.70 Calculus of gallbladder and bile duct without cholecystitis without obstruction (principal)
CPT/HCPCS: 36415; 76705; 80053; 80307; 81001; 81025; 83690; 85025; 87086; 96372; 99283; J0500